=== PATIENT | female | born 1970 | race Caucasian/White ===

== ENCOUNTER 2016-12-23 08:46 | Observation (INO) | payer MEDICAID ==
[~2016-12-23] VITALS: Ht 167.6 cm; Wt 101.8 kg
--- NOTE | ~2016-12-23 | ECH ---
Transthoracic Echocardiography Report (TTE) Demographics Patient Name SHAWNA SORIANO Date of Study 12/24/2016 Laina Patient Number [id number] Visit Number [id number] Date of 1970 Room Number 423 Accession Number [id number] Gender Female Age 46 year(s) Referring Bart Angulo MD Chief Service Dispatcher Janette Dent [facility] Physician Teddy Garcia MD Physician Interpreting Stefany Freeman MD Chief Drafter Physician Supervising Ordering Physician Bart Angulo MD/LOLA IRBY Nurse Stress Medical Reception Specialist Conclusions Summary Technically fair exam. The estimated left ventricular ejection fraction is 60-65%. Mild to moderate left ventricular hypertrophy. Bubble study was done, there is no evidence for a PFO or ASD. Procedure Type of Study TTE procedure:Echo Complete SF. Procedure Date Date: 12/24/2016 Start: 03:00 PM Technical Quality: Fair due to body habitus. Indications:Chest pain. Additional Indications:expressive aphasia Appropriate Use Criteria: 9 Contrast Medium: Bubble Study. Height: 66 inches Weight: 223 pounds BSA: 2.09 m Rhythm: Sinus bradycardia HR: 56 bpm BP: 130/63 mmHg M-Mode/2D Measurements LV Diastolic Dimension: 4.73 cm LV Systolic Dimension: 2.9 cm LV Septum Diastolic: 1.25 cm LV PW Diastolic: 1.04 cm AO Root Dimension: 2.65 cm Cardiac Output: 5.32 l/min LA Dimension: 3.92 cm Cardiac Index: 2.55 l/min*m RV Diastolic Dimension: 2.7 cm LA volume index: 25 ml/m LVOT: 2.11 cm LVOT VTI: 27.2 cm RV Base: 4.3 cm LV Stroke volume: 95.06 ml RV Mid: 3.4 cm LV Stroke volume index: 45.48 ml/m RV Length: 6.5 cm Doppler Measurements AV Mean Gradient: 3.92 mmHg MV Peak E-Wave: 0.78 m/s LVOT Peak Velocity: 1.19 m/s MV Peak A-Wave: 0.75 m/s AV Area (Continuity):3.41 cm MV P1/2t: 67.3 msec TR Velocity:1.89 m/s TR Gradient:14.36 mmHg MV Deceleration Time: 256.9 msec Estimated RAP:5 mmHg MV Area (PHT): 3.27 cm Estimated RVSP: 19 mmHg Estimated PASP: 19.36 mmHg RA Area: 14.86 cm Findings Left Ventricle Normal left ventricle size and function. Mild to moderate left ventricular hypertrophy. Diastolic assessment reveals normal relaxation. Right Ventricle Normal right ventricle structure and function. Left Atrium Normal left atrial size. Bubble study was done, there is no evidence for a PFO or ASD. Right Atrium Normal right atrial size. Mitral Valve Normal mitral valve structure and function. Aortic Valve Normal aortic valve structure and function. Tricuspid Valve Normal tricuspid valve structure and function. Trivial tricuspid regurgitation by color Doppler. Pulmonic Valve The pulmonic valve is not well visualized. Pericardial Effusion No evidence of pericardial effusion. Miscellaneous Visualized portions of the aortic root and ascending aorta appear normal in size. Pleural Effusion No evidence of pleural effusion. Signature
--- NOTE | ~2016-12-23 | HP ---
ADMIT: 12/23/2016 RM/LOC: 423 [facility] MR#: [id number] [address] [address] SHAWNA SORIANO [address] [place] [address] History and Physical SEX: F AGE: 46 : 1970 DATE OF SERVICE: CHIEF COMPLAINT/HISTORY OF PRESENT ILLNESS: This 46-year-old female was admitted for expressive aphasia. The patient stated in the last 2-3 days, she was unable to get her words out. She knew what she wanted to say, but was unable to formulate words. There was no change in vision, headaches, falling spells, numbness, weakness, and no history of strokes or MS. The patient previously had been in fair health and the initial CAT scan showed no acute changes. No hemorrhage, but she was placed for observation. The concern was a neurological problem. The patient has generally been in good health. MEDICATIONS: Include: 1. Sertraline 150 mg daily. 2. Estradiol 1.5 mg daily. 3. Proventil inhaler 2 puffs q.i.d. ALLERGIES: NONE. PREVIOUS HOSPITALIZATIONS: Include back surgery, hysterectomy. SOCIAL HISTORY: The patient had a high school education. The patient was a pack-a-day smoker and does not drink alcohol. FAMILY HISTORY: Includes heart disease, cancer, diabetes, but no strokes. REVIEW OF SYSTEMS: There have been no headaches, sinus trouble, glaucoma, cataracts, or hearing loss. CARDIORESPIRATORY: The patient states she did have an episode of chest pain approximately 2 years ago. GASTROINTESTINAL: No nausea, vomiting, constipation, bloody stools, or diarrhea. : No hematuria, dysuria, burning, or frequency. No renal calculi. MUSCULOSKELETAL: The patient has had back surgery in the past. No arthritis or gout. PHYSICAL EXAMINATION: VITAL SIGNS: Blood pressure is normal. Pulse is low normal in the 60s and regular. GENERAL: The patient is a well-nourished, well-developed female, in no acute distress. She is alert, cooperative, oriented x3. When she speaks, she does look as if she is searching for words and they are slow to come out but they are appropriate. HEENT: Head - normocephalic without exostoses. SAURABH. Throat within normal limits. Pupils were equal, reactive to light. NECK: No carotid bruits are heard. Thyroid is not enlarged. Neck veins not distended. CHEST: Clear to percussion and auscultation. HEART: Regular rhythm with no murmur heard. No clinical evidence of cardiomegaly. ABDOMEN: Soft, nontender. Liver is not enlarged. Spleen is not palpable. No abnormal masses are palpated. Femoral pulses are strong and equal ADMIT: 12/23/2016 RM/LOC: 423 [facility] MR#: [id number] [id number] [id number] [place] [address] History and Physical SEX: F AGE: 46 : 1970 bilaterally. GENITALIA: Deferred. EXTREMITIES: No cyanosis, clubbing, or edema. Her reflexes are 2+ and equal. ASSESSMENT: Expressive aphasia. The patient also has episodes of anxiety and she has been seen in the past. The patient initially was placed for her speech problem, but then developed chest pain which she states was approximately 9/10, it was substernal, not associated with dyspnea or syncope. She was given nitroglycerin, an EKG was done, troponin levels were done, which were normal. The patient's pain subsided gradually and she will be kept another day and Cardiology will be asked to see the patient in consultation. FINAL DIAGNOSES: 1. Chest pain of unknown etiology. 2. Speech disorder. 3. Abnormal MRI scan of the brain. 4. History of anxiety and depression. 5. Remote history of smoking. Rip Arriaga MD/ sona JOB #: [id number] CC: Rip Arriaga, Attending Physician Rip Arriaga, Family Physician
[~2016-12-23 08:46] MED LIST: FEOSOL-DPS325 MG PO; FLAGYL-DPS500 MG PO; IBUPROFEN400 MG PO; IRON325 M1 PO; MAALOX DPS30 ML PO; MOTRIN-DPS800 MG PO; PEPCID AC10 MG PO; PEPCID DPS20 MG PO; PERCOCET 5-3251 EACH PO; SENOKOT DPS8.6 MG PO; TYLENOL DPS325 MG PO; URECHOLINE-DPS25 MG PO
--- NOTE | 2016-12-25 12:33 | ER ---
ADMIT: 12/23/2016 RM/LOC: ER [facility] MR#: [id number] [id number] [address] SHAWNA SORIANO [address] [place] [address] Emergency Room Report SEX: F AGE: 46 : 1970 DATE: 12/23/2016 ADDENDUM: This is a 46-year-old female coming in with kind of nonspecific complaints except more of impaired speech, more of an expressive dysarthria. Then, she had recently been having problems with some incontinence and even some bowel control, sometimes without any problem. She does have depression. She has had hysterectomy in the past. She was seen in conjunction with our physician curatorial assistant and she will dictate further addendum. I agree with plan and treatment. I saw the patient with her. Pola Mahajan MD/ sona JOB #: [id number] CC: Pola Mahajan MD, Attending Physician
[2016-12-25] MEDS ORDERED: ZOLOFT DPS50 MG PO (20:33)
[2016-12-25] MEDS ORDERED: ESTRADIOL1 MG PO (20:33)
[2016-12-25] MEDS ORDERED: PROVENTIL HFA6.7 GM IH (20:34)
--- NOTE | 2016-12-28 12:49 | DS ---
ADMIT: 12/23/2016 RM/LOC: 423 [facility] MR#: [id number] [address] [address] [place] [address] Discharge Summary SEX: F AGE: 46 : 1970 ADMISSION DATE: 12/23/2016 DISCHARGE DATE: 12/25/2016 This patient was admitted with some speech problems. She was unable to express her thoughts precisely and quickly. The patient was admitted to exclude stroke, hemorrhage and MS. Neurology consultation was requested but neurologist is out of town at this time. The patient then developed chest pains which were rated 9/10. The patient was seen by the cardiologists. Enzymes were normal. EKG showed no acute changes. The patient did improve. By the time of discharge, she was having no further pain. I felt the patient continued to have some anxiety, asthma, tobacco use. I think the pains are noncardiac. The patient is discharged. Her usual provider is Kayla Balderas and she will see Kayla Aquino in the next week. I feel she also should see a neurologist when one becomes available. FINAL DIAGNOSES: 1. Speech disorder of unknown etiology. 2. Chest pains. 3. Tobacco use. 4. Anxiety. 5. Asthma. 6. Prolonged QT interval. Rip Arriaga MD/ vdg JOB #: [id number] CC: Rip Arriaga MD, Attending Physician Rip Arriaga MD, Family Physician
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
== END 2016-12-25 13:05 | disposition home or self-care (01) ==
LOC: ER 08:46 → 4PCU 12:00
DX: R47.9 Unspecified speech disturbances (principal); R07.89 Other chest pain; J45.909 Unspecified asthma, uncomplicated; I45.81 Long QT syndrome; F41.9 Anxiety disorder, unspecified; F17.200 Nicotine dependence, unspecified, uncomplicated; Z98.890 Other specified postprocedural states; Z79.899 Other long term (current) drug therapy